=== PATIENT | female | born 1990 | race African-American/Black ===

== ENCOUNTER 2019-07-13 01:50 | Observation (INO) | payer BC | END 2019-07-13 02:20 | disposition home or self-care (01) | LOC: SPU 01:50 | PROVIDERS: ADMIT Obstetrics & Gynecology; ATTEND Obstetrics & Gynecology | DX: O62.9 Abnormality of forces of labor, unspecified (principal); Z3A.38 38 weeks gestation of pregnancy | CPT/HCPCS: 81002; G0378 ==